=== PATIENT | female | born 1980 | race Caucasian/White ===

== ENCOUNTER 2018-06-18 08:17 | Emergency (ER) | payer BC | END 2018-06-18 09:01 | disposition home or self-care (01) | LOC: FTE 08:17 | DX: S80.862A Insect bite (nonvenomous), left lower leg, initial encounter (principal); L03.116 Cellulitis of left lower limb; I10 Essential (primary) hypertension; W57.XXXA Bitten or stung by nonvenomous insect and other nonvenomous arthropods, initial encounter; Y92.89 Other specified places as the place of occurrence of the external cause | CPT/HCPCS: 99283 ==

== ENCOUNTER 2019-03-06 04:57 | Emergency (ER) | payer BC | END 2019-03-06 07:03 | disposition home or self-care (01) | LOC: E/R 04:57 | DX: J40 Bronchitis, not specified as acute or chronic (principal); I10 Essential (primary) hypertension; J06.9 Acute upper respiratory infection, unspecified; Z91.040 Latex allergy status | CPT/HCPCS: 99283 ==